=== PATIENT | female | born 1970 | race Caucasian/White ===

== ENCOUNTER → 2018-07-19 | Outpatient (CLI) | payer MEDICARE, MEDICAID ==
[~2018-07-19] MED LIST: ABAC300T9 PO; ACYC200C PO; ALBU6.7H IH; ATAZ300C PO; AZIT250T12 PO; BO1 TP; CLIN60LO6 TP; DAPS100T PO; LAMI100T7 PO; MIDO5TAB PO; NORV1 PO
== END | disposition home or self-care (01) ==
LOC: CT 10:25
PROVIDERS: ATTEND Internal Medicine Critical Care Medicine
DX: J84.9 Interstitial pulmonary disease, unspecified (principal); J91.8 Pleural effusion in other conditions classified elsewhere; N26.1 Atrophy of kidney (terminal); Z90.49 Acquired absence of other specified parts of digestive tract
CPT/HCPCS: 71250

== ENCOUNTER → 2019-03-16 | Day surgery (SDC) | payer MEDICARE, MEDICAID | END | disposition home or self-care (01) | LOC: CARD 12:04 → OR 13:20 | PROVIDERS: ATTEND Internal Medicine Critical Care Medicine | DX: I34.9 Nonrheumatic mitral valve disorder, unspecified (principal); Z79.899 Other long term (current) drug therapy; Z88.0 Allergy status to penicillin; Z88.2 Allergy status to sulfonamides; Z88.1 Allergy status to other antibiotic agents; Z88.8 Allergy status to other drugs, medicaments and biological substances | CPT/HCPCS: 93306 ==